=== PATIENT | male | born 1985 | race Two or more races ===

== ENCOUNTER 2023-07-21 09:20 | Emergency (ER) | payer MEDICAID ==
[~2023-07-21] VITALS: Ht 170.2 cm; Wt 124.0 kg
[2023-07-21] MEDS ORDERED: IBUP1TAB5 PO (10:46)
[2023-07-21] MEDS ORDERED: ACET500T58 PO (10:46)
[2023-07-21 10:57] VITALS: BP 154/105; PULSE 91; RESP 18; TEMP 97.7; O2SAT 100
== END 2023-07-21 10:46 | disposition home or self-care (01) ==
LOC: ER 09:20
DX: M76.891 Other specified enthesopathies of right lower limb, excluding foot (principal)
CPT/HCPCS: 73562